=== PATIENT | male | born 1970 | race Caucasian/White ===

== ENCOUNTER 2018-01-12 09:12 | Emergency (ER) | payer OTHER ==
[~2018-01-12] VITALS: Ht 167.6 cm; Wt 53.0 kg
[2018-01-12] MEDS ORDERED: FAMO-128 PO (12:39)
[2018-01-12] MEDS ORDERED: OMEP20TA5 PO (12:39)
[2018-01-12 12:52] VITALS: BP 123/64
== END 2018-01-12 13:05 | disposition home or self-care (01) ==
LOC: ER 09:13
DX: K21.9 Gastro-esophageal reflux disease without esophagitis (principal); M81.0 Age-related osteoporosis without current pathological fracture; Z88.8 Allergy status to other drugs, medicaments and biological substances; Z79.899 Other long term (current) drug therapy
CPT/HCPCS: 99282

== ENCOUNTER 2018-04-08 10:49 | Emergency (ER) | payer MEDICAID ==
[~2018-04-08] VITALS: Ht 167.6 cm; Wt 51.0 kg
[~2018-04-08 10:49] MED LIST: FAMO-128 PO; OMEP20TA5 PO
[2018-04-08 11:28] LABS: CLARITY,URINE Turbid (Clear); COLOR,URINE Yellow (Yellow); GLUCOSE, URINE Negative (Neg); KETONES,URINE Negative (Neg); LEUKOCYTE ESTERASE ,URINE Negative (Neg); NITRITES, URINE Negative (Neg); OCCULT BLOOD,URINE Negative (Neg); PROTEIN,URINE Negative (Neg)
[2018-04-08 11:30] LABS: PH,URINE 8.5 (4.8-8.0); UA COLLECTION TYPE CLN CATCH MIDSTREAM
[2018-04-08] MEDS ORDERED: pantoprazole 40 MG vial IV ONE (11:30)
[2018-04-08] MEDS ORDERED: metoclopramide 5 mg/ml inj IV ONE (11:35)
[2018-04-08 11:39] LABS: AMORPHOUS PHOSPHATES 3+; BACTERIA,URINE NONE SEEN /HPF (Neg); MUCUS STRANDS NONE SEEN /LPF (Neg); RBC,URINE 0-2 /HPF (0-2); SQUAMOUS EPITHELIAL CELL,UR NONE SEEN /LPF (FEW); WBC,URINE NONE SEEN /HPF (0-4)
[2018-04-08 11:40] LABS: BASOPHILS % (AUTO) 0.4 % (0-1); EOSINOPHILS # (AUTO) 0.1 X10'3 (0-0.9); EOSINOPHILS % (AUTO) 1.6 % (0-6); HEMATOCRIT 42.9 % (42.0-52.0); HEMOGLOBIN 14.8 g/dl (14.0-17.9); LYMPHOCYTES # (AUTO) 1.2 X10'3 (1.1-4.8); LYMPHOCYTES % (AUTO) 14.5 % (21-51); MEAN CORPUSCULAR HEMOGLOBIN 29.3 PG (27.0-31.0); MEAN CORPUSCULAR HGB CONC 34.4 % (33.0-36.5); MEAN CORPUSCULAR VOLUME 85.2 FL (78-98); MEAN PLATELET VOLUME 8.2 FL (7.4-10.4); MONOCYTES # (AUTO) 0.3 X10'3 (0-0.9); MONOCYTES % (AUTO) 3.7 % (2-12); NEUTROPHILS # (AUTO) 6.8 X10'3 (1.8-7.7); NEUTROPHILS % (AUTO) 79.8 % (42-75); PLATELET COUNT 303 X10'3 (140-440); RED BLOOD COUNT 5.03 X10'6 (4.70-6.10); RED CELL DISTRIBUTION WIDTH 13.5 % (11.5-14.5); WHITE BLOOD COUNT 8.5 X10'3 (4.5-11.0)
[2018-04-08 11:42] LABS: ALANINE AMINOTRANSFERASE 24 U/L (12-78); ALBUMIN 4.1 G/DL (3.4-5.0); ALBUMIN/GLOBULIN RATIO 1.2 (1.1-1.5); ALKALINE PHOSPHATASE 85 IU/L (46-116); ANION GAP 8 (8-16); ASPARTATE AMINO TRANSFERASE 14 U/L (10-37); BILIRUBIN,TOTAL 0.5 MG/DL (0.1-1.0); BLOOD UREA NITROGEN 19 MG/DL (7-18); BUN/CREATININE RATIO 18.3 (5.4-32.0); CHLORIDE 102 MMOL/L (99-107); CREATININE 1.04 MG/DL (0.60-1.10); GLUCOSE 115 MG/DL (70-104); POTASSIUM 3.9 MMOL/L (3.5-5.1); SODIUM 139 MMOL/L (135-145); TOTAL CARBON DIOXIDE 28.6 MMOL/L (24-32); TOTAL PROTEIN 7.6 G/DL (6.4-8.2); eGFR 77 ML/MIN
[2018-04-08] MEDS ORDERED: MONT10TA21 PO (11:55)
[2018-04-08] MEDS ORDERED: FAMO20TA8 PO (11:55)
[2018-04-08] MEDS ORDERED: HYDR50TA3 PO (11:55)
[2018-04-08] MEDS ORDERED: ONDA4TAB12 PO (11:55)
[2018-04-08 12:00] VITALS: BP 112/79
[2018-04-11 12:54] LABS: OCCULT BLOOD STOOL NEGATIVE (Neg)
== END 2018-04-08 12:33 | disposition home or self-care (01) ==
LOC: ER 10:50
DX: K29.00 Acute gastritis without bleeding (principal); R05 Cough; K21.9 Gastro-esophageal reflux disease without esophagitis; G89.29 Other chronic pain; M81.0 Age-related osteoporosis without current pathological fracture; Z88.8 Allergy status to other drugs, medicaments and biological substances; Z79.899 Other long term (current) drug therapy
CPT/HCPCS: 36415; 80053; 81001; 82272; 85025; 96374; 96375; 99284; C9113; J2765

== ENCOUNTER 2018-06-17 10:40 | Emergency (ER) | payer MEDICAID ==
[~2018-06-17] VITALS: Ht 167.6 cm; Wt 60.0 kg
[~2018-06-17 10:40] MED LIST changes: -FAMO-128 PO; +FAMO20TA8 PO; +HYDR50TA3 PO; +MONT10TA21 PO; -OMEP20TA5 PO; +ONDA4TAB12 PO
[2018-06-17] MEDS ORDERED: CLIN300C85 PO (10:58)
[2018-06-17] MEDS ORDERED: IBUP-1984 PO (10:58)
[2018-06-17 11:05] VITALS: BP 148/104
== END 2018-06-17 11:07 | disposition home or self-care (01) ==
LOC: ER 10:41
DX: K08.89 Other specified disorders of teeth and supporting structures (principal); G89.29 Other chronic pain; K21.9 Gastro-esophageal reflux disease without esophagitis; M81.0 Age-related osteoporosis without current pathological fracture; Z88.8 Allergy status to other drugs, medicaments and biological substances; Z79.899 Other long term (current) drug therapy
CPT/HCPCS: 99283

== ENCOUNTER 2018-11-26 06:24 | Inpatient (IN) | payer MEDICAID ==
[~2018-11-26] VITALS: Ht 170.2 cm; Wt 67.8 kg
[~2018-11-26 06:24] MED LIST changes: +CLIN300C85 PO
[2018-11-26 07:12] LABS: BASOPHILS % (AUTO) 0.6 % (0-1); EOSINOPHILS # (AUTO) 0.2 X10'3 (0-0.9); HEMOGLOBIN 14.2 g/dl (14.0-17.9); LYMPHOCYTES % (AUTO) 24.6 % (21-51); MEAN CORPUSCULAR HGB CONC 33.8 g/dL (33.0-36.5); MEAN CORPUSCULAR VOLUME 85.9 FL (78-98); MEAN PLATELET VOLUME 8.6 FL (7.4-10.4); MONOCYTES # (AUTO) 0.5 X10'3 (0-0.9); MONOCYTES % (AUTO) 5.9 % (2-12); NEUTROPHILS # (AUTO) 5.4 X10'3 (1.8-7.7); NEUTROPHILS % (AUTO) 66.9 % (42-75); PLATELET COUNT 278 X10'3 (140-440); RED CELL DISTRIBUTION WIDTH 13.9 % (11.5-14.5); WHITE BLOOD COUNT 8.1 X10'3 (4.5-11.0)
[2018-11-26 07:16] LABS: ALANINE AMINOTRANSFERASE 33 U/L (12-78); ALBUMIN 3.9 G/DL (3.4-5.0); ALBUMIN/GLOBULIN RATIO 1.2 (1.1-1.5); ALKALINE PHOSPHATASE 63 IU/L (46-116); ANION GAP 12 (8-16); ASPARTATE AMINO TRANSFERASE 16 U/L (10-37); BILIRUBIN,TOTAL 0.9 MG/DL (0.1-1.0); BLOOD UREA NITROGEN 20 MG/DL (7-18); BUN/CREATININE RATIO 18.3 (5.4-32.0); CALCIUM 8.4 MG/DL (8.5-10.1); CHLORIDE 105 MMOL/L (99-107); CREATININE 1.09 MG/DL (0.60-1.10); GLUCOSE 90 MG/DL (70-104); POTASSIUM 3.6 MMOL/L (3.5-5.1); SODIUM 141 MMOL/L (135-145); TOTAL CARBON DIOXIDE 23.9 MMOL/L (24-32); TOTAL PROTEIN 7.1 G/DL (6.4-8.2); eGFR 73 ML/MIN
[2018-11-26 07:30] LABS: PROTHROMBIN TIME 10.1 SECONDS (9.0-12.0)
[2018-11-26] MEDS ORDERED: normal saline 1000ML IV soln IVB ONE (07:35)
[2018-11-26] MEDS ORDERED: pantoprazole 40 MG vial IV ONE (07:35)
[2018-11-26] MEDS ORDERED: proCHLORperazine 10 MG/2 ml inj IV ONE (07:35)
[2018-11-26 07:45] LABS: LIPASE 1105 U/L (73-393)
[2018-11-26] MEDS ORDERED: iohexol 300mg/ml 100ml inj. ONE (09:41)
[2018-11-26] MEDS ORDERED: LORA10TA7 PO (09:46)
[2018-11-26] MEDS ORDERED: LISI-600 PO (09:47)
--- NOTE | 2018-11-26 09:48 | NUR ---
Pt. awaiting hospitalist. To CT scan now.
[2018-11-26] MEDS ORDERED: HYDROcodone/acetaminophen 5mg/325mg tablet PO PRN (10:30)
[2018-11-26] MEDS: K and/or MAG REPLACEMENT MC SCH (10:30)
[2018-11-26] MEDS ORDERED: acetaminophen 650mg rectal suppository RC PRN (10:30)
[2018-11-26] MEDS ORDERED: magnesium 2GM in 50ml NS 50 ML IV PRN (10:30)
[2018-11-26] MEDS ORDERED: mag hydrox/Alum hydrox/simeth 30ml oral suspension PO PRN (10:30)
[2018-11-26] MEDS ORDERED: potassium Cl 40MEQ/NS 500ml 500 ML IV PRN ×2 (10:30)
[2018-11-26] MEDS ORDERED: magnesium Cl slow-release 64mg tablet PO PRN (10:30)
[2018-11-26] MEDS ORDERED: magnesium hydroxide 30ml (MOM) UD suspension PO PRN (10:30)
[2018-11-26] MEDS ORDERED: diphenhydrAMINE 50 mg/ml inj IV PRN (10:30)
[2018-11-26] MEDS ORDERED: bisacodyl 10mg suppository rectal RC PRN (10:30)
[2018-11-26] MEDS ORDERED: acetaminophen 325mg tablet PO PRN (10:30)
[2018-11-26] MEDS ORDERED: potassium Cl 20 mEq SR tablet PO PRN ×2 (10:30)
[2018-11-26] MEDS ORDERED: morphine 4 MG/ML inj SYRINge IV PRN ×2 (10:30)
[2018-11-26] MEDS ORDERED: magnesium 4gm in 100ml NS 100 ML IV PRN (10:30)
[2018-11-26] MEDS ORDERED: diphenhydrAMINE 25mg capsule PO PRN (10:30)
[2018-11-26] MEDS ORDERED: metoclopramide 5 mg/ml inj IV PRN (10:30)
--- NOTE | 2018-11-26 10:44 | NUR ---
Dr. Sierra at bedside now.
[2018-11-26 10:52] LABS: CLARITY,URINE CLEAR (Clear); COLOR,URINE YELLOW (Yellow); GLUCOSE, URINE NEGATIVE (Neg); KETONES,URINE 40 mg/dl (Neg); LEUKOCYTE ESTERASE ,URINE NEGATIVE (Neg); NITRITES, URINE NEGATIVE (Neg); OCCULT BLOOD,URINE NEGATIVE (Neg); PH,URINE 8.5 (4.8-8.0); PROTEIN,URINE NEGATIVE (Neg)
[2018-11-26 10:54] LABS: UA COLLECTION TYPE CLN CATCH MIDSTREAM
[2018-11-26] MEDS ORDERED: albuterol 2.5 MG/3 ML nebule NEB PRN (11:00)
[2018-11-26 11:06] LABS: URINE AMPHETAMINE SCREEN NEGATIVE (Neg); URINE BARBITUATE SCREEN NEGATIVE (Neg); URINE BENZODIAZEPINES SCREEN NEGATIVE (Neg); URINE CANNABINOID SCREEN NEGATIVE (Neg); URINE COCAINE SCREEN NEGATIVE (Neg); URINE METHADONE SCREEN NEGATIVE (Neg); URINE OPIATE SCREEN NEGATIVE (Neg); URINE PHENCYCLIDINE SCREEN NEGATIVE (Neg)
[2018-11-26] MEDS: dextrose 5%-normal saline 1,000 ML IV SCH ×2 (11:38→22:27)
[2018-11-26] MEDS: lisinopril 20mg tablet PO SCH (11:39)
[2018-11-26 15:41] VITALS: BP 122/87
--- NOTE | 2018-11-26 16:22 | NUR ---
Called ER to ask if they have patient's cellphone. I was told by the patient that his cellphone is in the emergency room Addendum: 11/26/18 at 1624 by Cecy Torres RN The staff said they will check with the gertrude Bray when he comes back if he found the cellphone
--- NOTE | 2018-11-26 17:46 | NUR ---
ER called the unit and said they do not found patient's cellphone. Belongings at bedside checked with patient's permission, no cellphone found
--- NOTE | 2018-11-26 18:32 | NUR ---
Problems reprioritized. Patient report given, questions answered & plan of care reviewed with Alea LUCIA.
--- NOTE | 2018-11-26 18:38 | NUR ---
Patient in room [facility]. I have received report from Cecy LUCIA and had the opportunity to ask questions and assume patient care. Pt was laying comfortably in bed watching the football game. No dinner tray at bedside since pt is NPO. Currently in no pain, has IV running at 100, pump cleared. Will continue to monitor.
[2018-11-26] MEDS: pantoprazole 40 MG vial IV SCH (19:33)
[2018-11-26 20:00] VITALS: BP 116/72
[2018-11-26] MEDS ORDERED: temazepam 15mg capsule PO PRN (21:00)
[2018-11-27] VITALS: BP 97/60
[2018-11-27 05:03] LABS: BASOPHILS % (AUTO) 0.4 % (0-1); EOSINOPHILS # (AUTO) 0.2 X10'3 (0-0.9); EOSINOPHILS % (AUTO) 2.6 % (0-6); HEMATOCRIT 36.3 % (42.0-52.0); HEMOGLOBIN 12.2 g/dl (14.0-17.9); LYMPHOCYTES # (AUTO) 1.6 X10'3 (1.1-4.8); LYMPHOCYTES % (AUTO) 19.4 % (21-51); MEAN CORPUSCULAR HEMOGLOBIN 29.1 PG (27.0-31.0); MEAN CORPUSCULAR HGB CONC 33.6 g/dL (33.0-36.5); MEAN CORPUSCULAR VOLUME 86.4 FL (78-98); MEAN PLATELET VOLUME 8.6 FL (7.4-10.4); MONOCYTES # (AUTO) 0.6 X10'3 (0-0.9); MONOCYTES % (AUTO) 7.3 % (2-12); NEUTROPHILS # (AUTO) 5.6 X10'3 (1.8-7.7); NEUTROPHILS % (AUTO) 70.3 % (42-75); PLATELET COUNT 226 X10'3 (140-440); RED CELL DISTRIBUTION WIDTH 13.5 % (11.5-14.5)
[2018-11-27 05:17] LABS: ALANINE AMINOTRANSFERASE 25 U/L (12-78); ALBUMIN/GLOBULIN RATIO 1.2 (1.1-1.5); ALKALINE PHOSPHATASE 49 IU/L (46-116); ANION GAP 8 (8-16); ASPARTATE AMINO TRANSFERASE 14 U/L (10-37); BILIRUBIN,TOTAL 0.7 MG/DL (0.1-1.0); BLOOD UREA NITROGEN 13 MG/DL (7-18); BUN/CREATININE RATIO 14.3 (5.4-32.0); CALCIUM 7.2 MG/DL (8.5-10.1); CHLORIDE 109 MMOL/L (99-107); CHOL/HDL RATIO 3.5 (0.00-4.99); CHOLESTEROL 207 MG/DL (0-200); CREATININE 0.91 MG/DL (0.60-1.10); GLUCOSE 96 MG/DL (70-104); HDL CHOLESTEROL 59 MG/DL (35-60); LDL CHOLESTEROL 135 MG/DL (50-100); MAGNESIUM 2.3 MG/DL (1.5-2.4); PHOSPHORUS 3.5 MG/DL (2.3-4.5); POTASSIUM 3.5 MMOL/L (3.5-5.1); SODIUM 143 MMOL/L (135-145); TOTAL CARBON DIOXIDE 25.8 MMOL/L (24-32); TOTAL PROTEIN 5.6 G/DL (6.4-8.2); TRIGLYCERIDES 74 MG/DL (20-135); eGFR 90 ML/MIN
--- NOTE | 2018-11-27 06:38 | NUR ---
Problems reprioritized. Patient report given, questions answered & plan of care reviewed with Garima LUCIA.
[2018-11-27 07:00] VITALS: BP 113/72
[2018-11-27] MEDS: K and/or MAG REPLACEMENT MC SCH (08:00)
[2018-11-27] MEDS: lisinopril 20mg tablet PO SCH (08:12)
[2018-11-27] MEDS: enoxaparin 40mg/0.4ml syringe SUBCUT SCH (08:12)
[2018-11-27] MEDS: loratadine 10mg tablet PO SCH (08:12)
[2018-11-27] MEDS: pantoprazole 40 MG vial IV SCH ×2 (08:13→19:23)
[2018-11-27] MEDS: dextrose 5%-normal saline 1,000 ML IV SCH ×3 (08:34→18:45)
[2018-11-27] MEDS: acetaminophen 325mg tablet PO PRN ×2 (09:37→20:18)
--- NOTE | 2018-11-27 11:25 | NUR ---
Patient c/o headache. states he sometimes gets a headache from "low blood sugar level". Checked blood sugar patient was 86. Medicated patient with PRN pain medication. Will continue to monitor.
[2018-11-27 11:44] LABS: LIPASE 87 U/L (73-393)
[2018-11-27 11:59] VITALS: BP 130/85
[2018-11-27] MEDS ORDERED: PANT40TA4 PO (17:17)
[2018-11-27] MEDS ORDERED: ONDA4TAB6 PO (17:17)
[2018-11-27] MEDS ORDERED: ALBU8.5H8 INH (17:18)
--- NOTE | 2018-11-27 18:25 | NUR ---
Problems reprioritized. Patient report given, questions answered & plan of care reviewed with KHARI Cosby.
--- NOTE | 2018-11-27 18:37 | NUR ---
Patient in room [facility]. I have received report from Garima LUCIA and had the opportunity to ask questions and assume patient care. Pt was sitting up in bed eating dinner. His epigastric pain had already returned. Will monitor pt for N?V Addendum: 11/27/18 at [address] RN Will monitor pt for N/V.
--- NOTE | 2018-11-27 19:00 | NUR ---
Pt received regular tray for dinner. He promptly began eating and [facility] through his tray he began to feel a pressure in the epigastric area. He discontinued eating as he started to suffer nausea. Within half an hour he started to retch and I administered zofran. Pt states at this time that the nausea has passed although he still feels like he has "a bubble stuck" in the epigastric area. I placed the pt back on NPO status.
[2018-11-27] MEDS: ondansetron/PF 4mg/2ml inj IV PRN (19:23)
[2018-11-27 20:12] VITALS: BP 127/76
[2018-11-27] MEDS: HYDROcodone/acetaminophen 10/325mg tab PO PRN (23:33)
[2018-11-28] VITALS (11 sets, daily range): BP systolic 104–133; BP diastolic 62–94
[2018-11-28] MEDS: HYDROcodone/acetaminophen 10/325mg tab PO PRN ×2 (04:33→15:45)
[2018-11-28] MEDS: dextrose 5%-normal saline 1,000 ML IV SCH ×2 (04:34→15:47)
[2018-11-28 05:24] LABS: BASOPHILS % (AUTO) 0.6 % (0-1); EOSINOPHILS # (AUTO) 0.3 X10'3 (0-0.9); HEMATOCRIT 36.6 % (42.0-52.0); HEMOGLOBIN 12.4 g/dl (14.0-17.9); LYMPHOCYTES # (AUTO) 1.6 X10'3 (1.1-4.8); LYMPHOCYTES % (AUTO) 24.3 % (21-51); MEAN CORPUSCULAR HEMOGLOBIN 29.1 PG (27.0-31.0); MEAN CORPUSCULAR VOLUME 85.8 FL (78-98); MEAN PLATELET VOLUME 8.6 FL (7.4-10.4); MONOCYTES # (AUTO) 0.5 X10'3 (0-0.9); MONOCYTES % (AUTO) 7.9 % (2-12); NEUTROPHILS # (AUTO) 4.2 X10'3 (1.8-7.7); NEUTROPHILS % (AUTO) 63.2 % (42-75); PLATELET COUNT 227 X10'3 (140-440); RED BLOOD COUNT 4.27 X10'6 (4.70-6.10); RED CELL DISTRIBUTION WIDTH 13.3 % (11.5-14.5); WHITE BLOOD COUNT 6.6 X10'3 (4.5-11.0)
[2018-11-28 05:44] LABS: ALANINE AMINOTRANSFERASE 27 U/L (12-78); ALBUMIN/GLOBULIN RATIO 1.1 (1.1-1.5); ALKALINE PHOSPHATASE 55 IU/L (46-116); ANION GAP 8 (8-16); ASPARTATE AMINO TRANSFERASE 12 U/L (10-37); BILIRUBIN,TOTAL 0.5 MG/DL (0.1-1.0); BLOOD UREA NITROGEN 9 MG/DL (7-18); BUN/CREATININE RATIO 8.1 (5.4-32.0); CALCIUM 7.3 MG/DL (8.5-10.1); CHLORIDE 107 MMOL/L (99-107); CREATININE 1.11 MG/DL (0.60-1.10); GLUCOSE 99 MG/DL (70-104); MAGNESIUM 2.3 MG/DL (1.5-2.4); PHOSPHORUS 3.7 MG/DL (2.3-4.5); POTASSIUM 3.6 MMOL/L (3.5-5.1); SODIUM 143 MMOL/L (135-145); TOTAL CARBON DIOXIDE 28.3 MMOL/L (24-32); TOTAL PROTEIN 5.8 G/DL (6.4-8.2); eGFR 71 ML/MIN
--- NOTE | 2018-11-28 06:18 | NUR ---
Problems reprioritized. Patient report given, questions answered & plan of care reviewed with Garima LUCIA.
[2018-11-28] MEDS: loratadine 10mg tablet PO SCH (07:38)
[2018-11-28] MEDS: K and/or MAG REPLACEMENT MC SCH (07:39)
[2018-11-28] MEDS: pantoprazole 40 MG vial IV SCH ×2 (07:39→20:09)
[2018-11-28] MEDS: enoxaparin 40mg/0.4ml syringe SUBCUT SCH (07:39)
[2018-11-28] MEDS: lisinopril 20mg tablet PO SCH (07:42)
[2018-11-28] MEDS: ondansetron/PF 4mg/2ml inj IV PRN (08:17)
[2018-11-28] MEDS ORDERED: MIDAZolam 5mg/5ml vial ONE (17:43)
[2018-11-28] MEDS ORDERED: fentaNYL/PF 50MCG/1 ML 2ML syringe ONE (17:43)
[2018-11-28] MEDS ORDERED: LIDOcaine Viscous 15ml cup ONE (17:44)
--- NOTE | 2018-11-28 18:20 | NUR ---
Problems reprioritized. Patient report given, questions answered & plan of care reviewed with KHARI Cosby.
--- NOTE | 2018-11-28 18:22 | NUR ---
Patient in room [facility]. I have received report from Garima LUCIA and had the opportunity to ask questions and assume patient care. Pt currently down in GI lab getting EGD done.
--- NOTE | 2018-11-28 19:29 | NUR ---
Pt returned from GI lab in stable condition. Received report from Xiomara, Pt has acute gastritis, which waqs biopsied and refux esophagitis, which was also biopsied. It is recommended that an abdominal ultrasound be befor Addendum: 11/28/18 [address] RN be performed which was already ordered by Dr. Sierra.
[2018-11-29 00:14] VITALS: BP 109/73
[2018-11-29] MEDS: dextrose 5%-normal saline 1,000 ML IV SCH (03:01)
[2018-11-29 05:21] LABS: BASOPHILS % (AUTO) 0.6 % (0-1); EOSINOPHILS # (AUTO) 0.3 X10'3 (0-0.9); EOSINOPHILS % (AUTO) 4.4 % (0-6); HEMATOCRIT 36.3 % (42.0-52.0); HEMOGLOBIN 12.2 g/dl (14.0-17.9); LYMPHOCYTES # (AUTO) 1.4 X10'3 (1.1-4.8); LYMPHOCYTES % (AUTO) 20.3 % (21-51); MEAN CORPUSCULAR HGB CONC 33.6 g/dL (33.0-36.5); MEAN CORPUSCULAR VOLUME 86.2 FL (78-98); MEAN PLATELET VOLUME 8.2 FL (7.4-10.4); MONOCYTES # (AUTO) 0.6 X10'3 (0-0.9); MONOCYTES % (AUTO) 9.2 % (2-12); NEUTROPHILS # (AUTO) 4.5 X10'3 (1.8-7.7); NEUTROPHILS % (AUTO) 65.5 % (42-75); PLATELET COUNT 225 X10'3 (140-440); RED BLOOD COUNT 4.22 X10'6 (4.70-6.10); RED CELL DISTRIBUTION WIDTH 13.4 % (11.5-14.5); WHITE BLOOD COUNT 6.9 X10'3 (4.5-11.0)
[2018-11-29 05:41] LABS: ANION GAP 5 (8-16); BILIRUBIN,TOTAL 0.4 MG/DL (0.1-1.0); BLOOD UREA NITROGEN 5 MG/DL (7-18); BUN/CREATININE RATIO 4.9 (5.4-32.0); CALCIUM 7.4 MG/DL (8.5-10.1); CHLORIDE 106 MMOL/L (99-107); CREATININE 1.02 MG/DL (0.60-1.10); GLUCOSE 97 MG/DL (70-104); MAGNESIUM 2.3 MG/DL (1.5-2.4); PHOSPHORUS 3.5 MG/DL (2.3-4.5); POTASSIUM 3.6 MMOL/L (3.5-5.1); SODIUM 142 MMOL/L (135-145); TOTAL CARBON DIOXIDE 30.6 MMOL/L (24-32); TOTAL PROTEIN 5.9 G/DL (6.4-8.2); eGFR 79 ML/MIN
[2018-11-29 05:42] LABS: ALANINE AMINOTRANSFERASE 23 U/L (12-78); ALKALINE PHOSPHATASE 52 IU/L (46-116); ASPARTATE AMINO TRANSFERASE 14 U/L (10-37)
--- NOTE | 2018-11-29 06:22 | NUR ---
Problems reprioritized. Patient report given, questions answered & plan of care reviewed with Lauren LUCIA.
--- NOTE | 2018-11-29 06:39 | NUR ---
Patient in room [facility]. I have received report from KHARI Cosby and had the opportunity to ask questions and assume patient care.
[2018-11-29 07:05] VITALS: BP 116/81
[2018-11-29] MEDS: pantoprazole 40 MG vial IV SCH (07:59)
[2018-11-29] MEDS: ondansetron/PF 4mg/2ml inj IV PRN (08:00)
[2018-11-29] MEDS: K and/or MAG REPLACEMENT MC SCH (08:00)
[2018-11-29] MEDS: enoxaparin 40mg/0.4ml syringe SUBCUT SCH (08:00)
[2018-11-29] MEDS: lisinopril 20mg tablet PO SCH (08:00)
[2018-11-29] MEDS: loratadine 10mg tablet PO SCH (08:00)
[2018-11-29] MEDS ORDERED: PANT40TA4 PO (11:12)
[2018-11-29 12:00] VITALS: BP 132/83
--- NOTE | 2018-11-29 15:18 | NUR ---
Pt discharged to home with all belongings. Discharge instructions reviewed, medications reviewed and new prescriptions delivered by [facility]. IV DC'd, cannula intact. Pt escorted to front lobby by auxiliary staff. Pt instructed to follow up with Dr Jones and provided with his office number.
--- NOTE | 2018-11-30 12:35 | NUR ---
Pt's d/c'd to the [facility], [facility] referral closed.
== END 2018-11-29 14:00 | disposition home or self-care (01) | DRG 243 ==
LOC: ER 06:25 → ED HOLD 10:28 → SUR 3N 15:27
PROVIDERS: ADMIT Family Medicine; ATTEND Family Medicine
PROC: BW211ZZ Computerized Tomography (CT Scan) of Abdomen and Pelvis using Low Osmolar Contrast (ICD-10-PCS; 2018-11-26)
PROC: 0DB48ZX Excision of Esophagogastric Junction, Via Natural or Artificial Opening Endoscopic, Diagnostic (ICD-10-PCS; principal; 2018-11-28)
PROC: 0DB68ZX Excision of Stomach, Via Natural or Artificial Opening Endoscopic, Diagnostic (ICD-10-PCS; 2018-11-28)
DX: K21.0 Gastro-esophageal reflux disease with esophagitis (principal); N28.1 Cyst of kidney, acquired; F31.9 Bipolar disorder, unspecified; I10 Essential (primary) hypertension; J45.20 Mild intermittent asthma, uncomplicated; G89.29 Other chronic pain; K29.00 Acute gastritis without bleeding; M81.0 Age-related osteoporosis without current pathological fracture; Z79.899 Other long term (current) drug therapy; Z80.42 Family history of malignant neoplasm of prostate; Z82.49 Family history of ischemic heart disease and other diseases of the circulatory system; Z87.891 Personal history of nicotine dependence; Z88.8 Allergy status to other drugs, medicaments and biological substances
CPT/HCPCS: 36415; 43239; 74177; 76700; 80053; 80061; 80305; 80320; 81003; 82948; 83036; 83690; 83735; 84100; 84443; 85025; 85610; 87070; 93005; 94760; 96361; 96374; 96375; 99152; 99285; A4620; C9113; G0378; J0780; J1650; J2250; J2405; J2765; J3010; J7030; J7042; Q9967

== ENCOUNTER 2018-12-02 08:18 | Emergency (ER) | payer MEDICAID ==
[~2018-12-02] VITALS: Ht 170.2 cm; Wt 66.5 kg
[~2018-12-02 08:18] MED LIST changes: +ALBU8.5H8 INH; -CLIN300C85 PO; -FAMO20TA8 PO; -HYDR50TA3 PO; +LISI-600 PO; +LORA10TA7 PO; -MONT10TA21 PO; -ONDA4TAB12 PO; +ONDA4TAB6 PO; +PANT40TA4 PO
[2018-12-02 09:53] LABS: BASOPHILS % (AUTO) 0.3 % (0-1); EOSINOPHILS # (AUTO) 0.1 X10'3 (0-0.9); EOSINOPHILS % (AUTO) 1.5 % (0-6); HEMATOCRIT 39.6 % (42.0-52.0); HEMOGLOBIN 13.4 g/dl (14.0-17.9); LYMPHOCYTES # (AUTO) 1.1 X10'3 (1.1-4.8); MEAN CORPUSCULAR HEMOGLOBIN 29.2 PG (27.0-31.0); MEAN CORPUSCULAR HGB CONC 33.8 g/dL (33.0-36.5); MEAN CORPUSCULAR VOLUME 86.3 FL (78-98); MEAN PLATELET VOLUME 8.3 FL (7.4-10.4); MONOCYTES # (AUTO) 0.2 X10'3 (0-0.9); MONOCYTES % (AUTO) 3.8 % (2-12); NEUTROPHILS # (AUTO) 4.5 X10'3 (1.8-7.7); NEUTROPHILS % (AUTO) 75.4 % (42-75); PLATELET COUNT 268 X10'3 (140-440); RED BLOOD COUNT 4.59 X10'6 (4.70-6.10); RED CELL DISTRIBUTION WIDTH 13.7 % (11.5-14.5)
[2018-12-02 10:08] LABS: PROTHROMBIN TIME 9.9 SECONDS (9.0-12.0)
[2018-12-02 10:09] LABS: ALANINE AMINOTRANSFERASE 44 U/L (12-78); ALBUMIN 3.8 G/DL (3.4-5.0); ALBUMIN/GLOBULIN RATIO 1.1 (1.1-1.5); ALKALINE PHOSPHATASE 72 IU/L (46-116); ANION GAP 11 (8-16); ASPARTATE AMINO TRANSFERASE 24 U/L (10-37); BILIRUBIN,TOTAL 0.4 MG/DL (0.1-1.0); BLOOD UREA NITROGEN 24 MG/DL (7-18); BUN/CREATININE RATIO 22.9 (5.4-32.0); CALCIUM 8.8 MG/DL (8.5-10.1); CHLORIDE 105 MMOL/L (99-107); CREATININE 1.05 MG/DL (0.60-1.10); GLUCOSE 102 MG/DL (70-104); LIPASE 108 U/L (73-393); POTASSIUM 3.6 MMOL/L (3.5-5.1); SODIUM 143 MMOL/L (135-145); TOTAL CARBON DIOXIDE 27.2 MMOL/L (24-32); TOTAL PROTEIN 7.2 G/DL (6.4-8.2); eGFR 76 ML/MIN
[2018-12-02 11:09] VITALS: BP 131/52
[2018-12-02] MEDS ORDERED: SUCR1TAB34 PO (11:37)
[2018-12-02] MEDS ORDERED: PHE12.5T PO (11:37)
[2018-12-02] MEDS ORDERED: sucralfate 1gm/10ml UD suspension PO ONE (11:40)
[2018-12-02] MEDS ORDERED: sucralfate 1gm/10ml UD suspension PO SCH (11:40)
[2018-12-02] MEDS ORDERED: ketorolac trometh inj. 60 MG/2 ML VIAL IM ONE (11:45)
== END 2018-12-02 11:54 | disposition home or self-care (01) ==
LOC: ER 08:19
DX: K22.70 Barrett's esophagus without dysplasia (principal); K29.70 Gastritis, unspecified, without bleeding; I10 Essential (primary) hypertension; Z88.1 Allergy status to other antibiotic agents; Z88.8 Allergy status to other drugs, medicaments and biological substances; Z79.899 Other long term (current) drug therapy
CPT/HCPCS: 36415; 80053; 83690; 85025; 85610; 96372; 99283; J1885

== ENCOUNTER 2018-12-09 07:52 | Emergency (ER) | payer MEDICAID ==
[~2018-12-09] VITALS: Ht 170.2 cm; Wt 67.3 kg
[~2018-12-09 07:52] MED LIST changes: +PHE12.5T PO; +SUCR1TAB34 PO
[2018-12-09 08:31] VITALS: BP 113/84
[2018-12-09] MEDS ORDERED: proMETHazine 25mg tablet PO ONE (08:45)
[2018-12-09] MEDS ORDERED: proCHLORperazine 10 MG/2 ml inj IM ONE (09:45)
[2018-12-09] MEDS ORDERED: METO5TAB98 PO (10:04)
== END 2018-12-09 10:18 | disposition home or self-care (01) ==
LOC: ER 07:52
DX: R11.2 Nausea with vomiting, unspecified (principal); I10 Essential (primary) hypertension; K21.9 Gastro-esophageal reflux disease without esophagitis; G89.29 Other chronic pain; M81.0 Age-related osteoporosis without current pathological fracture; Z88.1 Allergy status to other antibiotic agents; Z88.8 Allergy status to other drugs, medicaments and biological substances
CPT/HCPCS: 96372; 99283; J0780; Q0169

== ENCOUNTER 2018-12-17 16:34 | Emergency (ER) | payer MEDICAID ==
[2018-12-17 17:32] LABS: BASOPHILS % (AUTO) 0.6 % (0-1); EOSINOPHILS # (AUTO) 0.2 X10'3 (0-0.9); EOSINOPHILS % (AUTO) 2.2 % (0-6); HEMATOCRIT 39.6 % (42.0-52.0); HEMOGLOBIN 13.1 g/dl (14.0-17.9); LYMPHOCYTES # (AUTO) 1.9 X10'3 (1.1-4.8); LYMPHOCYTES % (AUTO) 26.5 % (21-51); MEAN CORPUSCULAR HEMOGLOBIN 28.2 PG (27.0-31.0); MEAN CORPUSCULAR HGB CONC 33.1 g/dL (33.0-36.5); MEAN CORPUSCULAR VOLUME 85.1 FL (78-98); MEAN PLATELET VOLUME 8.5 FL (7.4-10.4); MONOCYTES # (AUTO) 0.4 X10'3 (0-0.9); MONOCYTES % (AUTO) 5.8 % (2-12); NEUTROPHILS # (AUTO) 4.8 X10'3 (1.8-7.7); NEUTROPHILS % (AUTO) 64.9 % (42-75); PLATELET COUNT 369 X10'3 (140-440); RED BLOOD COUNT 4.66 X10'6 (4.70-6.10); RED CELL DISTRIBUTION WIDTH 13.4 % (11.5-14.5); WHITE BLOOD COUNT 7.3 X10'3 (4.5-11.0)
[2018-12-17 17:34] LABS: ALANINE AMINOTRANSFERASE 30 U/L (12-78); ALBUMIN 3.8 G/DL (3.4-5.0); ALBUMIN/GLOBULIN RATIO 1.1 (1.1-1.5); ALKALINE PHOSPHATASE 83 IU/L (46-116); ANION GAP 12 (8-16); ASPARTATE AMINO TRANSFERASE 19 U/L (10-37); BILIRUBIN,TOTAL 0.4 MG/DL (0.1-1.0); BLOOD UREA NITROGEN 23 MG/DL (7-18); CALCIUM 9.4 MG/DL (8.5-10.1); CHLORIDE 105 MMOL/L (99-107); CREATININE 1.15 MG/DL (0.60-1.10); GLUCOSE 99 MG/DL (70-104); LIPASE 135 U/L (73-393); POTASSIUM 3.4 MMOL/L (3.5-5.1); SODIUM 141 MMOL/L (135-145); TOTAL CARBON DIOXIDE 23.7 MMOL/L (24-32); TOTAL PROTEIN 7.2 G/DL (6.4-8.2); eGFR 68 ML/MIN
[2018-12-17 17:44] LABS: CLARITY,URINE SLIGHTLY CLOUDY (Clear); COLOR,URINE YELLOW (Yellow); GLUCOSE, URINE NEGATIVE (Neg); KETONES,URINE TRACE mg/dl (Neg); LEUKOCYTE ESTERASE ,URINE NEGATIVE (Neg); NITRITES, URINE NEGATIVE (Neg); OCCULT BLOOD,URINE NEGATIVE (Neg); PH,URINE 7.5 (4.8-8.0); PROTEIN,URINE 30 mg/dl (Neg); UROBILINOGEN,URINE 0.2 E.U/dL (0.2-1.0)
[2018-12-17 17:52] LABS: UA COLLECTION TYPE CLN CATCH MIDSTREAM
[2018-12-17 17:56] LABS: SPERM MANY /HPF (NEGATIVE); SQUAMOUS EPITHELIAL CELL,UR FEW /LPF (FEW)
[2018-12-17 17:57] VITALS: BP 134/95
[2018-12-17 17:58] LABS: BACTERIA,URINE 1+ /HPF (Neg)
[2018-12-17] MEDS ORDERED: famotidine 20mg tablet PO ONE (18:15)
[2018-12-17] MEDS ORDERED: RANI150C4 PO (18:16)
== END 2018-12-17 18:53 | disposition home or self-care (01) ==
LOC: ER 16:36
DX: K29.70 Gastritis, unspecified, without bleeding (principal); I10 Essential (primary) hypertension; K21.9 Gastro-esophageal reflux disease without esophagitis; G89.29 Other chronic pain; Z88.1 Allergy status to other antibiotic agents; Z88.8 Allergy status to other drugs, medicaments and biological substances
CPT/HCPCS: 36415; 80053; 81001; 83690; 85025; 87088; 99283

== ENCOUNTER 2019-02-25 19:33 | Emergency (ER) | payer MEDICAID ==
[~2019-02-25] VITALS: Ht 167.6 cm; Wt 60.0 kg
[~2019-02-25 19:33] MED LIST changes: +RANI150C4 PO
[2019-02-25 20:56] LABS: BASOPHILS % (AUTO) 0.7 % (0-1); EOSINOPHILS # (AUTO) 0.1 X10'3 (0-0.9); EOSINOPHILS % (AUTO) 1.8 % (0-6); HEMATOCRIT 38.6 % (42.0-52.0); HEMOGLOBIN 12.9 g/dl (14.0-17.9); LYMPHOCYTES # (AUTO) 1.9 X10'3 (1.1-4.8); LYMPHOCYTES % (AUTO) 25.4 % (21-51); MEAN CORPUSCULAR HEMOGLOBIN 28.1 PG (27.0-31.0); MEAN CORPUSCULAR HGB CONC 33.4 g/dL (33.0-36.5); MEAN CORPUSCULAR VOLUME 83.9 FL (78-98); MEAN PLATELET VOLUME 8.4 FL (7.4-10.4); MONOCYTES # (AUTO) 0.5 X10'3 (0-0.9); MONOCYTES % (AUTO) 7.3 % (2-12); NEUTROPHILS # (AUTO) 4.7 X10'3 (1.8-7.7); NEUTROPHILS % (AUTO) 64.8 % (42-75); PLATELET COUNT 275 X10'3 (140-440); RED CELL DISTRIBUTION WIDTH 13.4 % (11.5-14.5); WHITE BLOOD COUNT 7.3 X10'3 (4.5-11.0)
[2019-02-25 21:13] LABS: PARTIAL THROMBOPLASTIN TIME 27 SECONDS (22-32)
[2019-02-25 21:14] LABS: ALANINE AMINOTRANSFERASE 29 U/L (12-78); ALBUMIN/GLOBULIN RATIO 1.4 (1.1-1.5); ALKALINE PHOSPHATASE 73 IU/L (46-116); ANION GAP 11 (8-16); ASPARTATE AMINO TRANSFERASE 13 U/L (10-37); BILIRUBIN,TOTAL 0.4 MG/DL (0.1-1.0); BLOOD UREA NITROGEN 15 MG/DL (7-18); BUN/CREATININE RATIO 16.1 (5.4-32.0); CHLORIDE 104 MMOL/L (99-107); CREATININE 0.93 MG/DL (0.60-1.10); GLUCOSE 87 MG/DL (70-104); POTASSIUM 3.3 MMOL/L (3.5-5.1); SODIUM 139 MMOL/L (135-145); TOTAL CARBON DIOXIDE 24.3 MMOL/L (24-32); TOTAL PROTEIN 6.9 G/DL (6.4-8.2); eGFR 87 ML/MIN
[2019-02-25] MEDS ORDERED: potassium Cl 20 mEq SR tablet PO ONE (21:45)
[2019-02-25 21:50] VITALS: BP 123/89
== END 2019-02-25 22:06 | disposition home or self-care (01) ==
LOC: ER 19:38
DX: K29.70 Gastritis, unspecified, without bleeding (principal); R07.0 Pain in throat; R05 Cough; R42 Dizziness and giddiness; K21.9 Gastro-esophageal reflux disease without esophagitis; I10 Essential (primary) hypertension; G89.29 Other chronic pain; M81.0 Age-related osteoporosis without current pathological fracture; Z88.1 Allergy status to other antibiotic agents; Z88.8 Allergy status to other drugs, medicaments and biological substances; Z79.899 Other long term (current) drug therapy; Z87.19 Personal history of other diseases of the digestive system
CPT/HCPCS: 36415; 71045; 80053; 84484; 85025; 85610; 85730; 93005; 99284

== ENCOUNTER 2019-09-16 21:47 | Emergency (ER) | payer MEDICAID ==
[~2019-09-16] VITALS: Ht 170.2 cm; Wt 68.0 kg
[~2019-09-16 21:47] MED LIST changes: -PHE12.5T PO; +PROM12.512 PO
[2019-09-16] MEDS ORDERED: ketorolac trometh. 30mg/ml inj. IM ONE ×2 (22:50→22:55)
[2019-09-16 23:45] LABS: BASOPHILS # (AUTO) 0.1 X10'3 (0-0.2); BASOPHILS % (AUTO) 0.9 % (0-1); EOSINOPHILS # (AUTO) 0.2 X10'3 (0-0.9); EOSINOPHILS % (AUTO) 3.5 % (0-6); HEMATOCRIT 38.8 % (42.0-52.0); HEMOGLOBIN 13.2 g/dl (14.0-17.9); LYMPHOCYTES # (AUTO) 2.4 X10'3 (1.1-4.8); LYMPHOCYTES % (AUTO) 35.5 % (21-51); MEAN CORPUSCULAR HEMOGLOBIN 29.5 PG (27.0-31.0); MEAN CORPUSCULAR HGB CONC 34.1 g/dL (33.0-36.5); MEAN CORPUSCULAR VOLUME 86.5 FL (78-98); MEAN PLATELET VOLUME 8.3 FL (7.4-10.4); MONOCYTES # (AUTO) 0.4 X10'3 (0-0.9); MONOCYTES % (AUTO) 6.7 % (2-12); NEUTROPHILS # (AUTO) 3.6 X10'3 (1.8-7.7); NEUTROPHILS % (AUTO) 53.4 % (42-75); PLATELET COUNT 248 X10'3 (140-440); RED BLOOD COUNT 4.48 X10'6 (4.70-6.10); RED CELL DISTRIBUTION WIDTH 13.8 % (11.5-14.5); WHITE BLOOD COUNT 6.7 X10'3 (4.5-11.0)
[2019-09-16 23:51] LABS: ALANINE AMINOTRANSFERASE 25 U/L (12-78); ALBUMIN 3.6 G/DL (3.4-5.0); ALBUMIN/GLOBULIN RATIO 1.2 (1.1-1.5); ALKALINE PHOSPHATASE 71 IU/L (46-116); ANION GAP 7 (8-16); ASPARTATE AMINO TRANSFERASE 19 U/L (10-37); BILIRUBIN,TOTAL 0.4 MG/DL (0.1-1.0); BLOOD UREA NITROGEN 24 MG/DL (7-18); BUN/CREATININE RATIO 22.9 (5.4-32.0); CALCIUM 7.9 MG/DL (8.5-10.1); CHLORIDE 105 MMOL/L (99-107); CREATININE 1.05 MG/DL (0.60-1.10); GLUCOSE 99 MG/DL (70-104); POTASSIUM 3.9 MMOL/L (3.5-5.1); SODIUM 139 MMOL/L (135-145); TOTAL CARBON DIOXIDE 27.2 MMOL/L (24-32); TOTAL PROTEIN 6.7 G/DL (6.4-8.2); eGFR 76 ML/MIN
[2019-09-17 00:23] LABS: D-DIMER < 0.19 MG/L FEU (0-0.50)
[2019-09-17 00:46] VITALS: BP 120/89
== END 2019-09-17 00:48 | disposition home or self-care (01) ==
LOC: ER 21:50
DX: R07.89 Other chest pain (principal); I10 Essential (primary) hypertension; K21.9 Gastro-esophageal reflux disease without esophagitis; G89.29 Other chronic pain; M81.0 Age-related osteoporosis without current pathological fracture; F31.9 Bipolar disorder, unspecified; Z88.1 Allergy status to other antibiotic agents; Z88.8 Allergy status to other drugs, medicaments and biological substances; Z79.899 Other long term (current) drug therapy
CPT/HCPCS: 36415; 71045; 80053; 84484; 85025; 85379; 93005; 96372; 99284

== ENCOUNTER 2020-09-06 19:51 | Emergency (ER) | payer MEDICAID ==
[~2020-09-06] VITALS: Ht 170.2 cm; Wt 65.9 kg
[~2020-09-06 19:51] MED LIST changes: -PANT40TA4 PO; +PANT40TA54 PO
[2020-09-06 22:04] VITALS: BP 141/92
== END 2020-09-06 22:06 | disposition home or self-care (01) ==
LOC: ER 19:52
DX: R50.9 Fever, unspecified (principal); R06.02 Shortness of breath; M79.10 Myalgia, unspecified site; I10 Essential (primary) hypertension; K21.9 Gastro-esophageal reflux disease without esophagitis; F31.9 Bipolar disorder, unspecified; F32.9 Major depressive disorder, single episode, unspecified; Z87.19 Personal history of other diseases of the digestive system; Z88.1 Allergy status to other antibiotic agents; Z79.899 Other long term (current) drug therapy; Z20.828 Contact with and (suspected) exposure to other viral communicable diseases
CPT/HCPCS: 36415; 87635; 99283